=== PATIENT | male | born 2005 | race Caucasian/White ===

== ENCOUNTER 2025-10-11 11:19 | Emergency (ER) | payer SELFPAY ==
[2025-10-11 11:28] VITALS: BP 175/98; PULSE 84; RESP 16; TEMP 36.6; O2SAT 100
--- NOTE | 2025-10-11 13:07 | ED.ALLEREA ---
HPI - Allergic Reaction General Chief complaint: Allergic Reaction Stated complaint: allergic reaction started 0700 Time Seen by Provider: 10/11/25 12:03 Source: patient and family Mode of arrival: ambulatory Limitations: no limitations History of Present Illness HPI narrative: This is a 20-year-old male with no significant past medical history presents the ED for possible allergic reaction. Patient states that he woke up this morning with swelling and redness to his face. He states that he maybe feels slightly swollen but it was told by his parents that he is likely having an allergic reaction. He took 2 Benadryl this morning. Denies shortness of breath wheezing, throat swelling, tongue swelling, nausea, vomiting. No new exposures that he is aware of. Related Data Allergies Allergy/AdvReac Type Severity Reaction Status Date / Time No Known Allergies Allergy Verified 10/11/25 11:34 Review of Systems Review of Systems: Gen.: Denies fevers or chills Eyes: Denies eye pain or visual change ENT: Denies congestion Respiratory: Denies shortness of breath or cough CV: Denies chest pain or palpitations GI: Denies abdominal pain nausea, emesis or diarrhea denies burning, urgency, frequency or hematuria Musculoskeletal: Denies back pain or muscle pain Neuro: Denies numbness, tingling, weakness or focal weakness Skin: As per HPI Except as documented, all other systems reviewed and negative Exam Narrative: APPEARANCE: No acute distress, nontoxic, resting in bed HEENT: Normocephalic, atraumatic, OMM. Oropharynx clear common no swelling. RESPIRATORY: Lungs clear to auscultation and breathing. No respiratory distress. CARDIOVASCULAR: Appears well perfused ABDOMINAL: Nondistended MUSCULOSKELETAl: Moves all extremities. No obvious deformities NEURO: Awake and alert. SKIN:: Warm, dry. Erythema to the whole face, slight swelling to the face. PSYCHIATRIC: Normal affect/mood, Course Vital Signs Vital signs: Vital Signs Temperature 98 F 10/11/25 11:28 Pulse Rate 84 10/11/25 11:28 Respiratory Rate 16 10/11/25 11:28 Blood Pressure 175/98 H 10/11/25 11:28 Pulse Oximetry 100 10/11/25 11:28 Oxygen Delivery Room Air 10/11/25 11:28 Temperature 98 F 10/11/25 11:28 Pulse Rate 85 10/11/25 14:07 Respiratory Rate 18 10/11/25 14:07 Blood Pressure 163/97 H 10/11/25 14:07 Pulse Oximetry 99 10/11/25 14:07 Oxygen Delivery Room Air 10/11/25 11:28 MDM - Allergic Reaction MDM Narrative Medical decision making narrative: 20-year-old male Presenting for possible allergic reaction. On initial evaluation patient was in no acute distress afebrile, hemodynamic stable. Differentials include but are not limited to: Anaphylaxis allergic reaction, angioedema, contact dermatitis Notable exam findings: Mild erythema over the face with some apparent swelling, oropharynx clear, heart and lungs clear. Patient's symptoms are most likely due to a mild allergic reaction. He was advised to switch to a 2nd or 3rd generation antihistamine and he will be given a short course of steroids. He was given a referral to Family Medicine to establish care. Patient and family were agreeable to this plan. Given strict return precautions. Medical Records Attestation: I reviewed the patient's medical records. Discharge Plan Discharge Clinical Impression: Allergic reaction Qualifiers: Encounter type: initial encounter Qualified Code(s): T78.40XA - Allergy, unspecified, initial encounter Patient Disposition: Home Condition: Stable Instructions: Antibiotic Form, General Allergic Reaction (ED) Additional Instructions: Take Medrol Dosepak as prescribed. Stop using the lotion used yesterday she until further notice. You were given a referral to Dr. Pascual, Family Medicine, to establish care. Return to the ED for any new or worsening symptoms. Patient Language: Thai Prescriptions: New methylprednisolone [Medrol (Trev)] 4 mg tablets,dose pack See Rx Instructions .ROUTE .COMPLEX Qty: 21 0RF Rx Instructions: orally per package directions Follow-up/Referrals: PHYSICIAN,MULTIPLE [employer] MACHINE OPERATOR [Primary Care Provider, Internal Medicine] Jojo Pascual DO [Physician, Family Practice] Stand Alone Forms: Work/School Release IP
[2025-10-11 14:07] VITALS: BP 163/97; PULSE 85; RESP 18; O2SAT 99
== END 2025-10-11 14:09 | disposition home or self-care (01) ==
LOC: ANHED 13:20
PROVIDERS: Emergency Provider Student in an Organized Health Care Education/Training Program
DX: T78.40XA Allergy, unspecified, initial encounter (principal); R22.0 Localized swelling, mass and lump, head
CPT/HCPCS: 99283